=== PATIENT | female | born 1995 | race African-American/Black ===

== ENCOUNTER 2017-03-06 15:33 | Observation (INO) | payer OTHER ==
[~2017-03-06] VITALS: Ht 165.1 cm; Wt 54.4 kg
[2017-03-06] MEDS ORDERED: IV NORMAL SALINE 1000ML BAG 1,000 ML IV SCH (16:12)
--- NOTE | 2017-03-06 16:13 | PHYS DOC ---
Past Medical History Past Medical History: Asthma, Other Additional Past Medical Histor: graves disease Past Surgical History: Other Additional Past Surgical Histo: ectopic preg, Alcohol Use: None Drug Use: None Adult General Chief Complaint Chief Complaint: ABDOMINAL PAIN HPI HPI Patient is a 21 year old -[place] female who presents with with multiple complains. She states that 2 days ago she started having body aches with pain, abdominal pain, she vomits anytime she drinks water and she will episode of nonbloody stools this morning. She states she has a history of Graves ' disease but does not take her medicine because it makes her feel bad. She states he has medicines at home but doesn't want to take him. She states 3 years ago she had an ectopic otherwise is not complaining of any vaginal bleeding or discharge. She does have a cough that she's had for the last several days. She states her abdominal pains been there for 2 days and it' s constant nothing makes it better or worse. Review of Systems Review of Systems Constitutional: Denies fever or chills [] Eyes: Denies change in visual acuity, redness, or eye pain [] HENT: Denies nasal congestion or sore throat [] Respiratory: Denies cough or shortness of breath [] Cardiovascular: No additional information not addressed in HPI [] GI: Denies abdominal pain, nausea, vomiting, bloody stools or diarrhea [] : Denies dysuria or hematuria [] Musculoskeletal: Denies back pain or joint pain [] Integument: Denies rash or skin lesions [] Neurologic: Denies headache, focal weakness or sensory changes [] Endocrine: Denies polyuria or polydipsia [] Current Medications Current Medications Current Medications Medications (Trade) Dose Ordered Sig/Kiko Start Time Stop Time Status Last Admin Dose Admin Fentanyl Citrate (Fentanyl 2ml Vial) 25 mcg PRN Q15MIN PRN 03/06/17 16:45 03/06/17 18:01 DC 03/06/17 17:36 25 MCG Info (Do NOT chart on this entry -- for MONITORING) 1 each PRN DAILY PRN 03/06/17 17:00 03/08/17 16:59 Ondansetron HCl (Zofran) 4 mg 1X ONCE 03/06/17 16:15 03/06/17 16:16 DC 03/06/17 16:29 4 MG Sodium Chloride 1,000 ml @ 1,000 mls/hr Q1H 03/06/17 16:12 03/06/17 17:11 DC 03/06/17 16:28 1,000 MLS/HR Allergies Allergies Allergies Coded Allergies Type Severity Reaction Last Updated Verified morphine Allergy Severe "makes me go crazy" 03/06/17 Yes Physical Exam Physical Exam Constitutional: Well developed, well nourished, no acute distress, non-toxic appearance. [] HENT: Normocephalic, atraumatic, bilateral external ears normal, oropharynx moist, no oral exudates, nose normal. [] Eyes: PERRLA, EOMI, conjunctiva normal, no discharge. [] Neck: Normal range of motion, no tenderness, supple, no stridor. [] Cardiovascular:Heart rate regular rhythm, no murmur [] Lungs & Thorax: Bilateral breath sounds clear to auscultation [] Abdomen: Bowel sounds hypoactive soft, mild tenderness to palpation diffusely, no rebound or guarding, no masses, no pulsatile masses. [] Skin: Warm, dry, no erythema, no rash. [] Back: No tenderness, no CVA tenderness. [] Extremities: No tenderness, no cyanosis, no clubbing, ROM intact, no edema. [] Neurologic: Alert and oriented X 3, normal motor function, normal sensory function, no focal deficits noted. [] Psychologic: Affect normal, judgement normal, mood normal. [] Current Patient Data Vital Signs Vital Signs Date Time Temp Pulse Resp B/P (MAP) Pulse Ox O2 Delivery O2 Flow Rate FiO2 03/06/17 16:56 102 24 129/63 (85) 100 Room Air 03/06/17 15:52 98.5 98.5 Lab Values Laboratory Tests Test 03/06/17 16:00 White Blood Count 4.1 x10^3/uL (4.0-11.0) Red Blood Count 5.77 x10^6/uL (3.50-5.40) H Hemoglobin 14.3 g/dL (12.0-15.5) Hematocrit 44.0 % (36.0-47.0) Mean Corpuscular Volume 76 fL (79-100) L Mean Corpuscular Hemoglobin 25 pg (25-35) Mean Corpuscular Hemoglobin Concent 32 g/dL (31-37) Red Cell Distribution Width 13.7 % (11.5-14.5) Platelet Count 209 x10^3/uL (140-400) Neutrophils (%) (Auto) 57 % (31-73) Lymphocytes (%) (Auto) 24 % (24-48) Monocytes (%) (Auto) 19 % (0-9) H Eosinophils (%) (Auto) 0 % (0-3) Basophils (%) (Auto) 0 % (0-3) Neutrophils # (Auto) 2.3 x10^3uL (1.8-7.7) Lymphocytes # (Auto) 1.0 x10^3/uL (1.0-4.8) Monocytes # (Auto) 0.8 x10^3/uL (0.0-1.1) Eosinophils # (Auto) 0.0 x10^3/uL (0.0-0.7) Basophils # (Auto) 0.0 x10^3/uL (0.0-0.2) Segmented Neutrophils % 45 % (35-66) Band Neutrophils % 12 % (0-9) H Lymphocytes % 24 % (24-48) Monocytes % 19 % (0-10) H Platelet Estimate Adequate (ADEQUATE) Prothrombin Time 14.7 SEC (11.7-14.0) H Prothrombin Time INR 1.2 (0.8-1.1) H Urine Collection Type Unknown Urine Color Essence Urine Clarity Clear Urine pH 6.0 Urine Specific [place] >=1.030 Urine Protein 100 mg/dL (NEG-TRACE) Urine Glucose (UA) Negative mg/dL (NEG) Urine Ketones (Stick) Trace mg/dL (NEG) Urine Blood Trace (NEG) Urine Nitrite Negative (NEG) Urine Bilirubin Small (NEG) Urine Urobilinogen Dipstick 1.0 mg/dL (0.2 mg/dL) Urine Leukocyte Esterase Trace (NEG) Urine RBC 6-10 /HPF (0-2) Urine WBC 5-10 /HPF (0-4) Urine Squamous Epithelial Cells Mod /LPF Urine Bacteria 0 /HPF (0-FEW) Urine Mucus Marked /LPF Sodium Level 138 mmol/L (136-145) Potassium Level 2.8 mmol/L (3.5-5.1) *L Chloride Level 98 mmol/L (98-107) Carbon Dioxide Level 27 mmol/L (21-32) Anion Gap 13 (6-14) Blood Urea Nitrogen 10 mg/dL (7-20) Creatinine 0.7 mg/dL (0.6-1.0) Estimated GFR (Cockcroft-Gault) 129.1 Glucose Level 113 mg/dL (70-99) H Calcium Level 9.9 mg/dL (8.5-10.1) Magnesium Level 2.0 mg/dL (1.8-2.4) Total Bilirubin 0.7 mg/dL (0.2-1.0) Direct Bilirubin 0.1 mg/dL (0.0-0.2) Aspartate Amino Transferase (AST) 25 U/L (15-37) Alanine Aminotransferase (ALT) 22 U/L (14-59) Alkaline Phosphatase 90 U/L (46-116) Creatine Kinase 41 U/L (26-192) Creatine Kinase MB (Mass) < 0.5 ng/mL (0.0-3.6) Creatine Kinase MB Relative Index 1.2 % (0-4) Troponin I Quantitative < 0.017 ng/mL (0.000-0.055) [id number]-Krv-[id number]-Type Natriuretic Peptide 21 pg/mL (0-124) Total Protein 9.4 g/dL (6.4-8.2) H Albumin 4.4 g/dL (3.4-5.0) Lipase 81 U/L (73-393) Thyroid Stimulating Hormone (TSH) < 0.007 uIU/mL (0.358-3.74) L Urine Opiates Screen Neg (NEG) Urine Methadone Screen Neg (NEG) Urine Barbiturates Neg (NEG) Urine Phencyclidine Screen Neg (NEG) Urine Amphetamine/Methamphetamine Neg (NEG) Urine Benzodiazepines Screen Neg (NEG) Urine Cocaine Screen Neg (NEG) Urine Cannabinoids Screen Pos (NEG) Urine Ethyl Alcohol Neg (NEG) Laboratory Tests 03/06/17 16:00 Laboratory Tests 03/06/17 16:00 EKG EKG EKG shows sinus tachycardia with a rate of 109 bpm, no ST elevations appreciated , mild depressions in 1 and aVL, no T-wave inversions appreciated, left axis deviation noted, incomplete right bundle branch morphology noted, QTC 392 ms, as interpreted by me. Radiology/Procedures Radiology/Procedures [] Impressions: Abdominal pain Chest pain Hyperthyroidism Noncompliance Course & Med Decision Making Course & Med Decision Making Pertinent Labs and Imaging studies reviewed. (See chart for details) Potassium is 2.8. I have ordered [address] abdomen and pelvis is pending at this time. She's being admitted to Dr. Weber. He did speak with Dr. Allen regarding her noncompliance and her severely depressed TSH and he is going to see the patient and determine if she needs beta blockers or other intervention. I've informed him that his CT scans are still pending at this time. Patient's in stable condition be admitted to the floor. Interim orders have been written. Dragon Disclaimer Dragon Disclaimer This electronic medical record was generated, in whole or in part, using a voice recognition dictation system. Departure Departure Impression: Primary Impression: Abdominal pain Additional Impression: Graves disease Disposition: ADMITTED INPATIENT Admitting Physician: Dulce Allen Condition: STABLE Problem Qualifiers Primary Impression: Abdominal pain Abdominal location: generalized Qualified Codes: R10.84 - Generalized abdominal pain JACK PEREZ MD Mar 06, 2017 16:13
[2017-03-06] MEDS ORDERED: ONDANSETRON PF 4 MG/2 ML VIAL. IV ONE (16:15)
[2017-03-06 16:23] LABS: BILIRUBIN,URINE SMALL (NEG); GLUCOSE,URINE NEGATIVE (NEG); NITRITE,URINE NEGATIVE (NEG); PROTEIN,URINE 100 mg/dL (NEG-TRACE)
[2017-03-06 16:24] LABS: BASO % 0 % (0-3); EOS % 0 % (0-3); HEMOGLOBIN 14.3 g/dL (12.0-15.5); LYMPH % 24 % (24-48); MEAN CORPUSCULAR HEMOGLOBIN 25 pg (25-35); MEAN CORPUSCULAR HGB CONC 32 g/dL (31-37); MEAN CORPUSCULAR VOLUME 76 fL (79-100); MONO % 19 % (0-9); NEUT % 57 % (31-73); PLATELET COUNT 209 x10^3/uL (140-400); RED BLOOD COUNT 5.77 x10^6/uL (3.50-5.40); RED CELL DISTRIBUTION WIDTH 13.7 % (11.5-14.5); WHITE BLOOD COUNT 4.1 x10^3/uL (4.0-11.0)
[2017-03-06 16:28] LABS: BARBITURATES NEG (NEG); BENZODIAZEPINES NEG (NEG); CANNABINOIDS POS (NEG); COCAINE NEG (NEG); METHADONE NEG (NEG); OPIATES NEG (NEG); PHENCYCLIDINE NEG (NEG)
[2017-03-06 16:33] LABS: INR 1.2 (0.8-1.1); PROTHROMBIN TIME PATIENT 14.7 SEC (11.7-14.0)
[2017-03-06] MEDS: fentaNYL PF VIAL 100 MCG/2 ML VIAL IV PRN ×4 (16:46→23:24)
[2017-03-06 16:52] LABS: ALBUMIN 4.4 g/dL (3.4-5.0); CALCIUM 9.9 mg/dL (8.5-10.1); CREATININE 0.7 mg/dL (0.6-1.0); DIRECT BILIRUBIN 0.1 mg/dL (0.0-0.2); GFR 129.1; TOTAL BILIRUBIN 0.7 mg/dL (0.2-1.0); TOTAL PROTEIN 9.4 g/dL (6.4-8.2)
[2017-03-06 16:58] LABS: BACTERIA,URINE 0 /HPF (0-FEW); SQUAMOUS EPITHELIAL CELL,UR MOD /LPF
[2017-03-06 16:59] LABS: CREATINE KINASE 41 U/L (26-192)
[2017-03-06] MEDS ORDERED: CONTRAST GIVEN MC PRN (17:00)
[2017-03-06 17:02] LABS: POTASSIUM 2.8 mmol/L (3.5-5.1)
[2017-03-06 17:04] LABS: CKMB MASS < 0.5 ng/mL (0.0-3.6)
[2017-03-06] MEDS ORDERED: IOHEXOL 240 MG/ML 50ML VIAL. PO ONE (17:15)
[2017-03-06] MEDS ORDERED: IOHEXOL 300 MG/ML 75 ML VIAL IV ONE (17:15)
[2017-03-06 17:30] LABS: PLT ESTIMATE ADEQUATE (ADEQUATE)
[2017-03-06] MEDS ORDERED: ONDANSETRON PF 4 MG/2 ML VIAL. IV PRN (18:00)
[2017-03-06] MEDS ORDERED: PROMETHAZINE 25 MG in IV NORMAL SALINE 50ML 50 ML IV ONE (18:00)
[2017-03-06 18:50] VITALS: BP 145/72
[2017-03-06] MEDS: POTASSIUM CHLORIDE 10MEQ 100 ML IV SCH ×4 (19:06→23:23)
--- NOTE | 2017-03-06 19:29 | RAD ---
Examination: CT angiography chest and CT abdomen and pelvis with IV contrast HISTORY: History of abdominal pain, chest pain COMPARISON: None available TECHNIQUE: Axial CT angiography images were performed with IV contrast. Coronal and sagittal 3-D MIP reformats were performed. Axial CT images of the abdomen performed with IV contrast. Coronal and sagittal reformats are performed. Exposure: One or more of the following individualized dose reduction techniques were utilized for this examination: 1. Automated exposure control 2. Adjustment of the mA and/or kV according to patient size 3. Use of iterative reconstruction technique FINDINGS: The caliber of the aorta grossly appears unremarkable. The dilation the ascending aorta is limited due to significant motion artifact No evidence of filling defect identified in the main pulmonary arterial trunk and right and left main pulmonary arteries and visualized liver, segment appearance of the pulmonary arteries No evidence of pericardial effusion. The esophagus appears somewhat patulous with the small amount of fluid within the esophagus. Multiple groundglass patchy airspace opacities identified in the right middle lobe, bibasilar lungs. The visualized liver demonstrates a tiny 2 mm hypodensity in the right lobe of the liver could be a cyst or hemangioma. The visualized spleen, adrenals grossly appears unremarkable The stomach is mildly distended The visualized pancreas grossly appears unremarkable Small bowel is nondilated The visualized appendix grossly appears unremarkable. Feces and gas noted in the colon Urinary bladder is mildly distended. The bilateral kidneys enhance symmetrically. The caliber of the aorta grossly appears unremarkable. No evidence of lytic bony destructive lesion. IMPRESSION: 1. No evidence of pulmonary embolism. 2. The esophagus is mildly patulous with fluid distention of the esophagus. Nonspecific, Scleroderma not completely excluded. 3. Multiple groundglass patchy airspace opacities identified in the right middle lobe and bibasilar lungs likely pneumonia or mucous plugging or aspiration. 4. No acute intra-abdominal findings. Electronically signed by: Jc Majano MD (03/06/2017 7:25 PM) [facility]
--- NOTE | 2017-03-06 19:58 | PDOC1 ---
History and Physical Date of Admission Date of Admission DATE: 03/06/17 TIME: 19:55 Identification/Chief Complaint Chief Complaint CP, Abd beulah, Tachy, NONCOMPLIANCE with meds and need for thyroid surgery Problems: History of Present Illness History of Present Illness HPI Patient is a 21 year old -[place] female who presents with with multiple complains. She states that 2 days ago she started having body aches with pain, abdominal pain, she vomits anytime she drinks water and she will episode of nonbloody stools this morning. She states she has a history of Graves ' disease but does not take her medicine because it makes her feel bad. She states he has medicines at home but doesn't want to take him. She states 3 years ago she had an ectopic otherwise is not complaining of any vaginal bleeding or discharge. She does have a cough that she's had for the last several days. She states her abdominal pains been there for 2 days and it' s constant nothing makes it better or worse. Past Medical History: Asthma, Other Additional Past Medical Histor: graves disease Past Surgical History: Other Additional Past Surgical Histo: ectopic preg, Alcohol Use: None Pt seen and examined [facility] ER doc and RNs Plan is add Propranalol and Iv fluids Gave her an appointment slip at to see Endocrinology. Dictation system broken Total time 32 minutes Current Problem List Problem List Problems Medical Problems: (1) Abdominal pain Status: Acute (2) Graves disease Status: Acute Problems: Current Medications Current Medications Current Medications Sodium Chloride 1,000 ml @ 1,000 mls/hr Q1H IV Last administered on 03/06/17 16:28; Start 03/06/17 at 16:12; Stop 03/06/17 at 17:11; Status DC Ondansetron HCl (Zofran) 4 mg 1X ONCE IV Last administered on 03/06/17 16:29; Start 03/06/17 at 16:15; Stop 03/06/17 at 16:16; Status DC Fentanyl Citrate (Fentanyl 2ml Vial) 25 mcg PRN Q15MIN PRN IV PAIN GREATER THAN 3/10 Last administered on 03/06/17 17:36; Start 03/06/17 at 16:45; Stop 03/06 at 18:01; Status DC Iohexol (Omnipaque 300 Mg/ml) 75 ml 1X ONCE IV Last administered on 03/06/17 17:15; Start 03/06/17 at 17:15; Stop 03/06/17 at 17:16; Status DC Iohexol (Omnipaque 240 Mg/ml) 50 ml 1X ONCE PO Last administered on 03/06/17 17:15; Start 03/06/17 at 17:15; Stop 03/06/17 at 17:16; Status DC Info (Do NOT chart on this entry -- for MONITORING) 1 each PRN DAILY PRN MC SEE COMMENTS; Start 03/06/17 at 17:00; Stop 03/08/17 at 16:59 Promethazine HCl 25 mg/Sodium Chloride 51 ml @ 101 mls/hr 1X ONCE IV Last administered on 03/06/17 18:14; Start 03/06/17 at 18:00; Stop 03/06/17 at 18:30; Status DC Ondansetron HCl (Zofran) 4 mg PRN Q8HRS PRN IV NAUSEA/VOMITING; Start 03/06/17 at 18:00; Stop 03/07/17 at 17:59 Fentanyl Citrate (Fentanyl 2ml Vial) 50 mcg PRN Q2HR PRN IV PAIN; Start at 18:00; Stop 03/07/17 at 17:59 Potassium Chloride 100 ml @ 100 mls/hr Q1H IV Last administered on 03/06/17 19 :06; Start 03/06/17 at 19:00; Stop 03/06/17 at 22:59 Sodium Chloride 1,000 ml @ 75 mls/hr [id number] IV ; Start 03/06/17 at 20:00 Allergies Allergies: Coded Allergies: morphine (Verified Allergy, Severe, "makes me go crazy", 03/06/17) Vitals Vitals Vital Signs Date Time Temp Pulse Resp B/P (MAP) Pulse Ox O2 Delivery O2 Flow Rate FiO2 03/06/17 18:50 99.9 72 20 145/72 (96) 98 Room Air 99.9 Labs Labs Laboratory Tests Test 03/06/17 16:00 White Blood Count 4.1 x10^3/uL (4.0-11.0) Red Blood Count 5.77 x10^6/uL (3.50-5.40) Hemoglobin 14.3 g/dL (12.0-15.5) Hematocrit 44.0 % (36.0-47.0) Mean Corpuscular Volume 76 fL (79-100) Mean Corpuscular Hemoglobin 25 pg (25-35) Mean Corpuscular Hemoglobin Concent 32 g/dL (31-37) Red Cell Distribution Width 13.7 % (11.5-14.5) Platelet Count 209 x10^3/uL (140-400) Neutrophils (%) (Auto) 57 % (31-73) Lymphocytes (%) (Auto) 24 % (24-48) Monocytes (%) (Auto) 19 % (0-9) Eosinophils (%) (Auto) 0 % (0-3) Basophils (%) (Auto) 0 % (0-3) Neutrophils # (Auto) 2.3 x10^3uL (1.8-7.7) Lymphocytes # (Auto) 1.0 x10^3/uL (1.0-4.8) Monocytes # (Auto) 0.8 x10^3/uL (0.0-1.1) Eosinophils # (Auto) 0.0 x10^3/uL (0.0-0.7) Basophils # (Auto) 0.0 x10^3/uL (0.0-0.2) Segmented Neutrophils % 45 % (35-66) Band Neutrophils % 12 % (0-9) Lymphocytes % 24 % (24-48) Monocytes % 19 % (0-10) Platelet Estimate Adequate (ADEQUATE) Prothrombin Time 14.7 SEC (11.7-14.0) Prothromb Time International Ratio 1.2 (0.8-1.1) Urine Collection Type Unknown Urine Color Essence Urine Clarity Clear Urine pH 6.0 Urine Specific [place] >=1.030 Urine Protein 100 mg/dL (NEG-TRACE) Urine Glucose (UA) Negative mg/dL (NEG) Urine Ketones (Stick) Trace mg/dL (NEG) Urine Blood Trace (NEG) Urine Nitrite Negative (NEG) Urine Bilirubin Small (NEG) Urine Urobilinogen Dipstick 1.0 mg/dL (0.2 mg/dL) Urine Leukocyte Esterase Trace (NEG) Urine RBC 6-10 /HPF (0-2) Urine WBC 5-10 /HPF (0-4) Urine Squamous Epithelial Cells Mod /LPF Urine Bacteria 0 /HPF (0-FEW) Urine Mucus Marked /LPF Sodium Level 138 mmol/L (136-145) Potassium Level 2.8 mmol/L (3.5-5.1) Chloride Level 98 mmol/L (98-107) Carbon Dioxide Level 27 mmol/L (21-32) Anion Gap 13 (6-14) Blood Urea Nitrogen 10 mg/dL (7-20) Creatinine 0.7 mg/dL (0.6-1.0) Estimated GFR (Cockcroft-Gault) 129.1 Glucose Level 113 mg/dL (70-99) Calcium Level 9.9 mg/dL (8.5-10.1) Magnesium Level 2.0 mg/dL (1.8-2.4) Total Bilirubin 0.7 mg/dL (0.2-1.0) Direct Bilirubin 0.1 mg/dL (0.0-0.2) Aspartate Amino Transf (AST/SGOT) 25 U/L (15-37) Alanine Aminotransferase (ALT/SGPT) 22 U/L (14-59) Alkaline Phosphatase 90 U/L (46-116) Creatine Kinase 41 U/L (26-192) Creatine Kinase MB (Mass) < 0.5 ng/mL (0.0-3.6) Creatine Kinase MB Relative Index 1.2 % (0-4) Troponin I Quantitative < 0.017 ng/mL (0.000-0.055) DK-Mma-[id number]-Type Natriuretic Peptide 21 pg/mL (0-124) Total Protein 9.4 g/dL (6.4-8.2) Albumin 4.4 g/dL (3.4-5.0) Lipase 81 U/L (73-393) Thyroid Stimulating Hormone (TSH) < 0.007 uIU/mL (0.358-3.74) Free Thyroxine 1.88 ng/dL (0.76-1.46) Urine Opiates Screen Neg (NEG) Urine Methadone Screen Neg (NEG) Urine Barbiturates Neg (NEG) Urine Phencyclidine Screen Neg (NEG) Urine Amphetamine/Methamphetamine Neg (NEG) Urine Benzodiazepines Screen Neg (NEG) Urine Cocaine Screen Neg (NEG) Urine Cannabinoids Screen Pos (NEG) Urine Ethyl Alcohol Neg (NEG) Laboratory Tests Test 03/06/17 16:00 White Blood Count 4.1 x10^3/uL (4.0-11.0) Red Blood Count 5.77 x10^6/uL (3.50-5.40) Hemoglobin 14.3 g/dL (12.0-15.5) Hematocrit 44.0 % (36.0-47.0) Mean Corpuscular Volume 76 fL (79-100) Mean Corpuscular Hemoglobin 25 pg (25-35) Mean Corpuscular Hemoglobin Concent 32 g/dL (31-37) Red Cell Distribution Width 13.7 % (11.5-14.5) Platelet Count 209 x10^3/uL (140-400) Neutrophils (%) (Auto) 57 % (31-73) Lymphocytes (%) (Auto) 24 % (24-48) Monocytes (%) (Auto) 19 % (0-9) Eosinophils (%) (Auto) 0 % (0-3) Basophils (%) (Auto) 0 % (0-3) Neutrophils # (Auto) 2.3 x10^3uL (1.8-7.7) Lymphocytes # (Auto) 1.0 x10^3/uL (1.0-4.8) Monocytes # (Auto) 0.8 x10^3/uL (0.0-1.1) Eosinophils # (Auto) 0.0 x10^3/uL (0.0-0.7) Basophils # (Auto) 0.0 x10^3/uL (0.0-0.2) Segmented Neutrophils % 45 % (35-66) Band Neutrophils % 12 % (0-9) Lymphocytes % 24 % (24-48) Monocytes % 19 % (0-10) Platelet Estimate Adequate (ADEQUATE) Prothrombin Time 14.7 SEC (11.7-14.0) Prothromb Time International Ratio 1.2 (0.8-1.1) Urine Collection Type Unknown Urine Color Essence Urine Clarity Clear Urine pH 6.0 Urine Specific [place] >=1.030 Urine Protein 100 mg/dL (NEG-TRACE) Urine Glucose (UA) Negative mg/dL (NEG) Urine Ketones (Stick) Trace mg/dL (NEG) Urine Blood Trace (NEG) Urine Nitrite Negative (NEG) Urine Bilirubin Small (NEG) Urine Urobilinogen Dipstick 1.0 mg/dL (0.2 mg/dL) Urine Leukocyte Esterase Trace (NEG) Urine RBC 6-10 /HPF (0-2) Urine WBC 5-10 /HPF (0-4) Urine Squamous Epithelial Cells Mod /LPF Urine Bacteria 0 /HPF (0-FEW) Urine Mucus Marked /LPF Sodium Level 138 mmol/L (136-145) Potassium Level 2.8 mmol/L (3.5-5.1) Chloride Level 98 mmol/L (98-107) Carbon Dioxide Level 27 mmol/L (21-32) Anion Gap 13 (6-14) Blood Urea Nitrogen 10 mg/dL (7-20) Creatinine 0.7 mg/dL (0.6-1.0) Estimated GFR (Cockcroft-Gault) 129.1 Glucose Level 113 mg/dL (70-99) Calcium Level 9.9 mg/dL (8.5-10.1) Magnesium Level 2.0 mg/dL (1.8-2.4) Total Bilirubin 0.7 mg/dL (0.2-1.0) Direct Bilirubin 0.1 mg/dL (0.0-0.2) Aspartate Amino Transf (AST/SGOT) 25 U/L (15-37) Alanine Aminotransferase (ALT/SGPT) 22 U/L (14-59) Alkaline Phosphatase 90 U/L (46-116) Creatine Kinase 41 U/L (26-192) Creatine Kinase MB (Mass) < 0.5 ng/mL (0.0-3.6) Creatine Kinase MB Relative Index 1.2 % (0-4) Troponin I Quantitative < 0.017 ng/mL (0.000-0.055) PG-Kmo-O-Type Natriuretic Peptide 21 pg/mL (0-124) Total Protein 9.4 g/dL (6.4-8.2) Albumin 4.4 g/dL (3.4-5.0) Lipase 81 U/L (73-393) Thyroid Stimulating Hormone (TSH) < 0.007 uIU/mL (0.358-3.74) Free Thyroxine 1.88 ng/dL (0.76-1.46) Urine Opiates Screen Neg (NEG) Urine Methadone Screen Neg (NEG) Urine Barbiturates Neg (NEG) Urine Phencyclidine Screen Neg (NEG) Urine Amphetamine/Methamphetamine Neg (NEG) Urine Benzodiazepines Screen Neg (NEG) Urine Cocaine Screen Neg (NEG) Urine Cannabinoids Screen Pos (NEG) Urine Ethyl Alcohol Neg (NEG) VTE Prophylaxis Ordered VTE Prophylaxis Devices: Yes VTE Pharmacological Prophylaxi: Yes MATIAS MCARTHUR III DO Mar 06, 2017 19:57
[2017-03-06] MEDS: IV NORMAL SALINE 1000ML BAG 1,000 ML IV SCH (20:00)
[2017-03-06] MEDS: PROPRANOLOL 10 MG TABLET. PO SCH (21:04)
[2017-03-06 23:00] VITALS: BP 106/62
[2017-03-07 03:00] VITALS: BP 106/55
[2017-03-07] MEDS: PROMETH/CODEINE 6.25/10MG 5 ML SYRUP. PO PRN ×3 (03:03→21:15)
[2017-03-07 04:04] LABS: BASO % 0 % (0-3); EOS % 0 % (0-3); HEMATOCRIT 34.6 % (36.0-47.0); HEMOGLOBIN 11.2 g/dL (12.0-15.5); LYMPH # 1.2 x10^3/uL (1.0-4.8); LYMPH % 36 % (24-48); MEAN CORPUSCULAR HEMOGLOBIN 25 pg (25-35); MEAN CORPUSCULAR HGB CONC 32 g/dL (31-37); MEAN CORPUSCULAR VOLUME 76 fL (79-100); MONO % 17 % (0-9); NEUT % 47 % (31-73); PLATELET COUNT 158 x10^3/uL (140-400); RED BLOOD COUNT 4.53 x10^6/uL (3.50-5.40); RED CELL DISTRIBUTION WIDTH 13.6 % (11.5-14.5); WHITE BLOOD COUNT 3.4 x10^3/uL (4.0-11.0)
[2017-03-07 05:51] LABS: CALCIUM 8.3 mg/dL (8.5-10.1); CREATININE 0.6 mg/dL (0.6-1.0); GFR 154.2
[2017-03-07 07:00] VITALS: BP 109/76
[2017-03-07] MEDS: PROPRANOLOL 10 MG TABLET. PO SCH ×2 (08:58→21:17)
[2017-03-07] MEDS: fentaNYL PF VIAL 100 MCG/2 ML VIAL IV PRN ×2 (09:12→15:49)
[2017-03-07] MEDS: IV NORMAL SALINE 1000ML BAG 1,000 ML IV SCH ×2 (09:13→11:00)
[2017-03-07] MEDS ORDERED: POTASSIUM CHLORIDE 20 MEQ TABLET.ER. PO ONE (11:00)
--- NOTE | 2017-03-07 11:08 | PDOC ---
PROGRESS NOTES Chief Complaint Chief Complaint Chief complaint nausea vomiting diarrhea, and cough Assessment and plan: #1 possible pneumonia Vs Asthma, #2 hypokalemia #3 elevated T4 questionably Graves' disease, #4 nausea vomiting and diarrhea and dehydration 5, Fevers, Plan #1placed on IV Rocephin and Zithromax, #2 started on IV hydration with normal saline, #3 consult pulmonology / infectious disease for further recommendations, patient needs outpatient follow-up with endocrinology at [facility], information provided #4 patient has elevation of temperature spikes I will order blood cultures, labs reviewed, #5 CBC BMP ordered for tomorrow, as needed Tylenol for fever, prognosis guarded, 6, PRN nebulizations. History of Present Illness History of Present Illness vomiting this am fevers no chest pain not feeling well. Vitals Vitals Vital Signs Date Time Temp Pulse Resp B/P (MAP) Pulse Ox O2 Delivery O2 Flow Rate FiO2 03/07/17 09:12 20 100 Room Air 03/07/17 08:58 90 109/76 03/07/17 07:00 99.5 99.5 Physical Exam General: Alert, Oriented X3 Heart: Regular rate, Normal S1, Normal S2 Lungs: Clear, Other (rales) Abdomen: Normal bowel sounds, Soft Extremities: No clubbing Skin: No rashes, No breakdown Labs LABS Laboratory Tests Test 03/06/17 16:00 03/07/17 03:00 03/07/17 03:30 White Blood Count 4.1 x10^3/uL (4.0-11.0) 3.4 x10^3/uL (4.0-11.0) Red Blood Count 5.77 x10^6/uL (3.50-5.40) 4.53 x10^6/uL (3.50-5.40) Hemoglobin 14.3 g/dL (12.0-15.5) 11.2 g/dL (12.0-15.5) Hematocrit 44.0 % (36.0-47.0) 34.6 % (36.0-47.0) Mean Corpuscular Volume 76 fL (79-100) 76 fL (79-100) Mean Corpuscular Hemoglobin 25 pg (25-35) 25 pg (25-35) Mean Corpuscular Hemoglobin Concent 32 g/dL (31-37) 32 g/dL (31-37) Red Cell Distribution Width 13.7 % (11.5-14.5) 13.6 % (11.5-14.5) Platelet Count 209 x10^3/uL (140-400) 158 x10^3/uL (140-400) Neutrophils (%) (Auto) 57 % (31-73) 47 % (31-73) Lymphocytes (%) (Auto) 24 % (24-48) 36 % (24-48) Monocytes (%) (Auto) 19 % (0-9) 17 % (0-9) Eosinophils (%) (Auto) 0 % (0-3) 0 % (0-3) Basophils (%) (Auto) 0 % (0-3) 0 % (0-3) Neutrophils # (Auto) 2.3 x10^3uL (1.8-7.7) 1.6 x10^3uL (1.8-7.7) Lymphocytes # (Auto) 1.0 x10^3/uL (1.0-4.8) 1.2 x10^3/uL (1.0-4.8) Monocytes # (Auto) 0.8 x10^3/uL (0.0-1.1) 0.6 x10^3/uL (0.0-1.1) Eosinophils # (Auto) 0.0 x10^3/uL (0.0-0.7) 0.0 x10^3/uL (0.0-0.7) Basophils # (Auto) 0.0 x10^3/uL (0.0-0.2) 0.0 x10^3/uL (0.0-0.2) Segmented Neutrophils % 45 % (35-66) Band Neutrophils % 12 % (0-9) Lymphocytes % 24 % (24-48) Monocytes % 19 % (0-10) Platelet Estimate Adequate (ADEQUATE) Prothrombin Time 14.7 SEC (11.7-14.0) Prothromb Time International Ratio 1.2 (0.8-1.1) Urine Collection Type Unknown Urine Color Essence Urine Clarity Clear Urine pH 6.0 Urine Specific Garnavillo >=1.030 Urine Protein 100 mg/dL (NEG-TRACE) Urine Glucose (UA) Negative mg/dL (NEG) Urine Ketones (Stick) Trace mg/dL (NEG) Urine Blood Trace (NEG) Urine Nitrite Negative (NEG) Urine Bilirubin Small (NEG) Urine Urobilinogen Dipstick 1.0 mg/dL (0.2 mg/dL) Urine Leukocyte Esterase Trace (NEG) Urine RBC 6-10 /HPF (0-2) Urine WBC 5-10 /HPF (0-4) Urine Squamous Epithelial Cells Mod /LPF Urine Bacteria 0 /HPF (0-FEW) Urine Mucus Marked /LPF Sodium Level 138 mmol/L (136-145) 139 mmol/L (136-145) Potassium Level 2.8 mmol/L (3.5-5.1) 3.0 mmol/L (3.5-5.1) Chloride Level 98 mmol/L (98-107) 104 mmol/L (98-107) Carbon Dioxide Level 27 mmol/L (21-32) 27 mmol/L (21-32) Anion Gap 13 (6-14) 8 (6-14) Blood Urea Nitrogen 10 mg/dL (7-20) 7 mg/dL (7-20) Creatinine 0.7 mg/dL (0.6-1.0) 0.6 mg/dL (0.6-1.0) Estimated GFR (Cockcroft-Gault) 129.1 154.2 Glucose Level 113 mg/dL (70-99) 108 mg/dL (70-99) Calcium Level 9.9 mg/dL (8.5-10.1) 8.3 mg/dL (8.5-10.1) Magnesium Level 2.0 mg/dL (1.8-2.4) Total Bilirubin 0.7 mg/dL (0.2-1.0) Direct Bilirubin 0.1 mg/dL (0.0-0.2) Aspartate Amino Transf (AST/SGOT) 25 U/L (15-37) Alanine Aminotransferase (ALT/SGPT) 22 U/L (14-59) Alkaline Phosphatase 90 U/L (46-116) Creatine Kinase 41 U/L (26-192) Creatine Kinase MB (Mass) < 0.5 ng/mL (0.0-3.6) Creatine Kinase MB Relative Index 1.2 % (0-4) Troponin I Quantitative < 0.017 ng/mL (0.000-0.055) WH-Hpe-T-Type Natriuretic Peptide 21 pg/mL (0-124) Total Protein 9.4 g/dL (6.4-8.2) Albumin 4.4 g/dL (3.4-5.0) Lipase 81 U/L (73-393) Thyroid Stimulating Hormone (TSH) < 0.007 uIU/mL (0.358-3.74) Free Thyroxine 1.88 ng/dL (0.76-1.46) Urine Opiates Screen Neg (NEG) Urine Methadone Screen Neg (NEG) Urine Barbiturates Neg (NEG) Urine Phencyclidine Screen Neg (NEG) Urine Amphetamine/Methamphetamine Neg (NEG) Urine Benzodiazepines Screen Neg (NEG) Urine Cocaine Screen Neg (NEG) Urine Cannabinoids Screen Pos (NEG) Urine Ethyl Alcohol Neg (NEG) Assessment and Plan Assessmemt and Plan Problems Medical Problems: (1) Abdominal pain Status: Acute (2) Graves disease Status: Acute Problems: Comment Review of Relevant I have reviewed the following items jeramie (where applicable) has been applied. Labs Laboratory Tests Test 03/06/17 16:00 03/07/17 03:00 03/07/17 03:30 White Blood Count 4.1 x10^3/uL (4.0-11.0) 3.4 x10^3/uL (4.0-11.0) Red Blood Count 5.77 x10^6/uL (3.50-5.40) 4.53 x10^6/uL (3.50-5.40) Hemoglobin 14.3 g/dL (12.0-15.5) 11.2 g/dL (12.0-15.5) Hematocrit 44.0 % (36.0-47.0) 34.6 % (36.0-47.0) Mean Corpuscular Volume 76 fL (79-100) 76 fL (79-100) Mean Corpuscular Hemoglobin 25 pg (25-35) 25 pg (25-35) Mean Corpuscular Hemoglobin Concent 32 g/dL (31-37) 32 g/dL (31-37) Red Cell Distribution Width 13.7 % (11.5-14.5) 13.6 % (11.5-14.5) Platelet Count 209 x10^3/uL (140-400) 158 x10^3/uL (140-400) Neutrophils (%) (Auto) 57 % (31-73) 47 % (31-73) Lymphocytes (%) (Auto) 24 % (24-48) 36 % (24-48) Monocytes (%) (Auto) 19 % (0-9) 17 % (0-9) Eosinophils (%) (Auto) 0 % (0-3) 0 % (0-3) Basophils (%) (Auto) 0 % (0-3) 0 % (0-3) Neutrophils # (Auto) 2.3 x10^3uL (1.8-7.7) 1.6 x10^3uL (1.8-7.7) Lymphocytes # (Auto) 1.0 x10^3/uL (1.0-4.8) 1.2 x10^3/uL (1.0-4.8) Monocytes # (Auto) 0.8 x10^3/uL (0.0-1.1) 0.6 x10^3/uL (0.0-1.1) Eosinophils # (Auto) 0.0 x10^3/uL (0.0-0.7) 0.0 x10^3/uL (0.0-0.7) Basophils # (Auto) 0.0 x10^3/uL (0.0-0.2) 0.0 x10^3/uL (0.0-0.2) Segmented Neutrophils % 45 % (35-66) Band Neutrophils % 12 % (0-9) Lymphocytes % 24 % (24-48) Monocytes % 19 % (0-10) Platelet Estimate Adequate (ADEQUATE) Prothrombin Time 14.7 SEC (11.7-14.0) Prothromb Time International Ratio 1.2 (0.8-1.1) Urine Collection Type Unknown Urine Color Essence Urine Clarity Clear Urine pH 6.0 Urine Specific Garnavillo >=1.030 Urine Protein 100 mg/dL (NEG-TRACE) Urine Glucose (UA) Negative mg/dL (NEG) Urine Ketones (Stick) Trace mg/dL (NEG) Urine Blood Trace (NEG) Urine Nitrite Negative (NEG) Urine Bilirubin Small (NEG) Urine Urobilinogen Dipstick 1.0 mg/dL (0.2 mg/dL) Urine Leukocyte Esterase Trace (NEG) Urine RBC 6-10 /HPF (0-2) Urine WBC 5-10 /HPF (0-4) Urine Squamous Epithelial Cells Mod /LPF Urine Bacteria 0 /HPF (0-FEW) Urine Mucus Marked /LPF Sodium Level 138 mmol/L (136-145) 139 mmol/L (136-145) Potassium Level 2.8 mmol/L (3.5-5.1) 3.0 mmol/L (3.5-5.1) Chloride Level 98 mmol/L (98-107) 104 mmol/L (98-107) Carbon Dioxide Level 27 mmol/L (21-32) 27 mmol/L (21-32) Anion Gap 13 (6-14) 8 (6-14) Blood Urea Nitrogen 10 mg/dL (7-20) 7 mg/dL (7-20) Creatinine 0.7 mg/dL (0.6-1.0) 0.6 mg/dL (0.6-1.0) Estimated GFR (Cockcroft-Gault) 129.1 154.2 Glucose Level 113 mg/dL (70-99) 108 mg/dL (70-99) Calcium Level 9.9 mg/dL (8.5-10.1) 8.3 mg/dL (8.5-10.1) Magnesium Level 2.0 mg/dL (1.8-2.4) Total Bilirubin 0.7 mg/dL (0.2-1.0) Direct Bilirubin 0.1 mg/dL (0.0-0.2) Aspartate Amino Transf (AST/SGOT) 25 U/L (15-37) Alanine Aminotransferase (ALT/SGPT) 22 U/L (14-59) Alkaline Phosphatase 90 U/L (46-116) Creatine Kinase 41 U/L (26-192) Creatine Kinase MB (Mass) < 0.5 ng/mL (0.0-3.6) Creatine Kinase MB Relative Index 1.2 % (0-4) Troponin I Quantitative < 0.017 ng/mL (0.000-0.055) IM-Mbs-H-Type Natriuretic Peptide 21 pg/mL (0-124) Total Protein 9.4 g/dL (6.4-8.2) Albumin 4.4 g/dL (3.4-5.0) Lipase 81 U/L (73-393) Thyroid Stimulating Hormone (TSH) < 0.007 uIU/mL (0.358-3.74) Free Thyroxine 1.88 ng/dL (0.76-1.46) Urine Opiates Screen Neg (NEG) Urine Methadone Screen Neg (NEG) Urine Barbiturates Neg (NEG) Urine Phencyclidine Screen Neg (NEG) Urine Amphetamine/Methamphetamine Neg (NEG) Urine Benzodiazepines Screen Neg (NEG) Urine Cocaine Screen Neg (NEG) Urine Cannabinoids Screen Pos (NEG) Urine Ethyl Alcohol Neg (NEG) Laboratory Tests Test 03/06/17 16:00 03/07/17 03:00 03/07/17 03:30 White Blood Count 4.1 x10^3/uL (4.0-11.0) 3.4 x10^3/uL (4.0-11.0) Red Blood Count 5.77 x10^6/uL (3.50-5.40) 4.53 x10^6/uL (3.50-5.40) Hemoglobin 14.3 g/dL (12.0-15.5) 11.2 g/dL (12.0-15.5) Hematocrit 44.0 % (36.0-47.0) 34.6 % (36.0-47.0) Mean Corpuscular Volume 76 fL (79-100) 76 fL (79-100) Mean Corpuscular Hemoglobin 25 pg (25-35) 25 pg (25-35) Mean Corpuscular Hemoglobin Concent 32 g/dL (31-37) 32 g/dL (31-37) Red Cell Distribution Width 13.7 % (11.5-14.5) 13.6 % (11.5-14.5) Platelet Count 209 x10^3/uL (140-400) 158 x10^3/uL (140-400) Neutrophils (%) (Auto) 57 % (31-73) 47 % (31-73) Lymphocytes (%) (Auto) 24 % (24-48) 36 % (24-48) Monocytes (%) (Auto) 19 % (0-9) 17 % (0-9) Eosinophils (%) (Auto) 0 % (0-3) 0 % (0-3) Basophils (%) (Auto) 0 % (0-3) 0 % (0-3) Neutrophils # (Auto) 2.3 x10^3uL (1.8-7.7) 1.6 x10^3uL (1.8-7.7) Lymphocytes # (Auto) 1.0 x10^3/uL (1.0-4.8) 1.2 x10^3/uL (1.0-4.8) Monocytes # (Auto) 0.8 x10^3/uL (0.0-1.1) 0.6 x10^3/uL (0.0-1.1) Eosinophils # (Auto) 0.0 x10^3/uL (0.0-0.7) 0.0 x10^3/uL (0.0-0.7) Basophils # (Auto) 0.0 x10^3/uL (0.0-0.2) 0.0 x10^3/uL (0.0-0.2) Segmented Neutrophils % 45 % (35-66) Band Neutrophils % 12 % (0-9) Lymphocytes % 24 % (24-48) Monocytes % 19 % (0-10) Platelet Estimate Adequate (ADEQUATE) Prothrombin Time 14.7 SEC (11.7-14.0) Prothromb Time International Ratio 1.2 (0.8-1.1) Urine Collection Type Unknown Urine Color Essence Urine Clarity Clear Urine pH 6.0 Urine Specific Garnavillo >=1.030 Urine Protein 100 mg/dL (NEG-TRACE) Urine Glucose (UA) Negative mg/dL (NEG) Urine Ketones (Stick) Trace mg/dL (NEG) Urine Blood Trace (NEG) Urine Nitrite Negative (NEG) Urine Bilirubin Small (NEG) Urine Urobilinogen Dipstick 1.0 mg/dL (0.2 mg/dL) Urine Leukocyte Esterase Trace (NEG) Urine RBC 6-10 /HPF (0-2) Urine WBC 5-10 /HPF (0-4) Urine Squamous Epithelial Cells Mod /LPF Urine Bacteria 0 /HPF (0-FEW) Urine Mucus Marked /LPF Sodium Level 138 mmol/L (136-145) 139 mmol/L (136-145) Potassium Level 2.8 mmol/L (3.5-5.1) 3.0 mmol/L (3.5-5.1) Chloride Level 98 mmol/L (98-107) 104 mmol/L (98-107) Carbon Dioxide Level 27 mmol/L (21-32) 27 mmol/L (21-32) Anion Gap 13 (6-14) 8 (6-14) Blood Urea Nitrogen 10 mg/dL (7-20) 7 mg/dL (7-20) Creatinine 0.7 mg/dL (0.6-1.0) 0.6 mg/dL (0.6-1.0) Estimated GFR (Cockcroft-Gault) 129.1 154.2 Glucose Level 113 mg/dL (70-99) 108 mg/dL (70-99) Calcium Level 9.9 mg/dL (8.5-10.1) 8.3 mg/dL (8.5-10.1) Magnesium Level 2.0 mg/dL (1.8-2.4) Total Bilirubin 0.7 mg/dL (0.2-1.0) Direct Bilirubin 0.1 mg/dL (0.0-0.2) Aspartate Amino Transf (AST/SGOT) 25 U/L (15-37) Alanine Aminotransferase (ALT/SGPT) 22 U/L (14-59) Alkaline Phosphatase 90 U/L (46-116) Creatine Kinase 41 U/L (26-192) Creatine Kinase MB (Mass) < 0.5 ng/mL (0.0-3.6) Creatine Kinase MB Relative Index 1.2 % (0-4) Troponin I Quantitative < 0.017 ng/mL (0.000-0.055) WM-Opk-G-Type Natriuretic Peptide 21 pg/mL (0-124) Total Protein 9.4 g/dL (6.4-8.2) Albumin 4.4 g/dL (3.4-5.0) Lipase 81 U/L (73-393) Thyroid Stimulating Hormone (TSH) < 0.007 uIU/mL (0.358-3.74) Free Thyroxine 1.88 ng/dL (0.76-1.46) Urine Opiates Screen Neg (NEG) Urine Methadone Screen Neg (NEG) Urine Barbiturates Neg (NEG) Urine Phencyclidine Screen Neg (NEG) Urine Amphetamine/Methamphetamine Neg (NEG) Urine Benzodiazepines Screen Neg (NEG) Urine Cocaine Screen Neg (NEG) Urine Cannabinoids Screen Pos (NEG) Urine Ethyl Alcohol Neg (NEG) Medications Current Medications Sodium Chloride 1,000 ml @ 1,000 mls/hr Q1H IV Last administered on 03/06/17 16:28; Start 03/06/17 at 16:12; Stop 03/06/17 at 17:11; Status DC Ondansetron HCl (Zofran) 4 mg 1X ONCE IV Last administered on 03/06/17 16:29; Start 03/06/17 at 16:15; Stop 03/06/17 at 16:16; Status DC Fentanyl Citrate (Fentanyl 2ml Vial) 25 mcg PRN Q15MIN PRN IV PAIN GREATER THAN 3/10 Last administered on 03/06/17 17:36; Start 03/06/17 at 16:45; Stop 03/06 at 18:01; Status DC Iohexol (Omnipaque 300 Mg/ml) 75 ml 1X ONCE IV Last administered on 03/06/17 17:15; Start 03/06/17 at 17:15; Stop 03/06/17 at 17:16; Status DC Iohexol (Omnipaque 240 Mg/ml) 50 ml 1X ONCE PO Last administered on 03/06/17 17:15; Start 03/06/17 at 17:15; Stop 03/06/17 at 17:16; Status DC Info (Do NOT chart on this entry -- for MONITORING) 1 each PRN DAILY PRN MC SEE COMMENTS; Start 03/06/17 at 17:00; Stop 03/08/17 at 16:59 Promethazine HCl 25 mg/Sodium Chloride 51 ml @ 101 mls/hr 1X ONCE IV Last administered on 03/06/17 18:14; Start 03/06/17 at 18:00; Stop 03/06/17 at 18:30; Status DC Ondansetron HCl (Zofran) 4 mg PRN Q8HRS PRN IV NAUSEA/VOMITING; Start 03/06/17 at 18:00; Stop 03/07/17 at 17:59 Fentanyl Citrate (Fentanyl 2ml Vial) 50 mcg PRN Q2HR PRN IV PAIN Last administered on 03/07/17 09:12; Start 03/06/17 at 18:00; Stop 03/07/17 at 17:59 Potassium Chloride 100 ml @ 100 mls/hr Q1H IV Last administered on 03/06/17 23 :23; Start 03/06/17 at 19:00; Stop 03/06/17 at 22:59; Status DC Sodium Chloride 1,000 ml @ 75 mls/hr [id number] IV Last administered on 03/07/17 09:13; Start 03/06/17 at 20:00; Stop 03/07/17 at 10:43; Status DC Propranolol HCl (Inderal) 10 mg BID PO Last administered on 03/07/17 08:58; Start 03/06/17 at 20:30 Promethazine HCl/ Codeine (Phenergan With Codeine) 5 ml PRN Q4HRS PRN PO COUGH Last administered on 03/07/17 08:58; Start 03/07/17 at 03:00 Potassium Chloride (Klor-Con) 40 meq 1X ONCE PO ; Start 03/07/17 at 11:00; Stop 03/07/17 at 11:01; Status DC Potassium Chloride/Sodium Chloride 1,000 ml @ 75 mls/hr [id number] IV ; Start 03/07 at 11:00 Sodium Chloride 1,000 ml @ 75 mls/hr [id number] IV ; Start 03/07/17 at 11:00 Vitals/I & O Vital Sign - Last 24 Hours 03/06/17 03/06/17 03/06/17 03/06/17 15:52 16:26 16:46 16:56 Temp 98.5 98.5 Pulse 122 124 102 Resp 18 23 18 24 B/P (MAP) 143/83 (103) 117/73 (88) 129/63 (85) Pulse Ox 100 100 100 O2 Delivery Room Air Room Air Room Air 03/06/17 03/06/17 03/06/17 03/06/17 17:26 17:36 18:50 21:04 Temp 99.9 99.9 Pulse 110 72 72 Resp 27 18 20 B/P (MAP) 128/72 (90) 145/72 (96) 145/72 Pulse Ox 100 98 O2 Delivery Room Air Room Air 03/06/17 03/06/17 03/06/17 03/06/17 21:05 23:00 23:24 23:59 Temp 99.3 99.3 Pulse 109 Resp 16 18 15 15 B/P (MAP) 106/62 (77) Pulse Ox 98 98 98 98 O2 Delivery Room Air Room Air Room Air Room Air 03/07/17 03/07/17 03/07/17 03/07/17 03:00 07:00 08:00 08:58 Temp 99.7 99.5 99.7 99.5 Pulse 101 90 90 Resp 18 18 B/P (MAP) 106/55 (72) 109/76 (87) 109/76 Pulse Ox 99 100 O2 Delivery Room Air Room Air Room Air 03/07/17 09:12 Resp 20 Pulse Ox 100 O2 Delivery Room Air Intake and Output 03/06/17 03/06/17 03/07/17 15:00 23:00 07:00 Intake Total 1000 ml Balance 1000 ml EUNICE YA MD Mar 07, 2017 11:08
[2017-03-07 11:10] VITALS: BP 102/84
[2017-03-07] MEDS: AZITHROMYCIN 250 MG TABLET. PO SCH (11:45)
--- NOTE | 2017-03-07 12:16 | EKG ---
[facility] [address] [place] [address] Test Date: 2017-03-06 Test Time: 16:01:02 Pat Name: JOSE LOPEZ Department: Room: Gender: F Drop Clipper: : 1995 Requested By: JACK PEREZ Order Number: [id number] Reading MD: Measurements Intervals Cameron Rate: 109 P: 0 KS: 124 QRS: -1 QRSD: 82 T: 42 QT: 290 QTc: 392 Interpretive Statements SINUS TACHYCARDIA LEFT ATRIAL ABNORMALITY LEFTWARD AXIS INCOMPLETE RIGHT BUNDLE BRANCH BLOCK ST & T ABNORMALITY, CONSIDER LATERAL ISCHEMIA OR LEFT VENTRICULAR STRAIN RI6.01 Unconfirmed report No previous ECG available for comparison
[2017-03-07 15:00] VITALS: BP 105/82
--- NOTE | 2017-03-07 15:57 | PDOC2 ---
CONSULT Date of Consult Date of Consult DATE: 03/07/17 TIME: 15:57 Reason for Consult Reason for Consult: ASTHMA/COUGH Identification/Chief Complaint Chief Complaint MULTIPLE NON SPECIFIC COMPLAINTS Problems: Source Source: Chart review, Patient History of Present Illness Reason for Visit: PT CAME IN FOR MUTLTIPLE COMPLAINTS HURTING ALL OVER "BONES HURTING" NO MORE SOA CT CHEST OBTAINED SHOWED ALVEOLITIS I WAS CONSULTED PT MOVED HERE SOUNDS LIKE ASTHMA IS NOT WELL CONTROLLED WITH ALBUTEROL SHE DOES NOT KNOW HER MED NOW MOSTLY COUGH NON PRODUCTIVE NOT SOA NO WHEEZE Past Medical History Pulmonary: Asthma (USES ALBUTEROL PRN) Musculoskeletal: Osteoarthritis Endocrine: Other (GRAVES) Social History <1 pack per day Current Problem List Problem List Problems Medical Problems: (1) Abdominal pain Status: Acute (2) Graves disease Status: Acute Current Medications Current Medications Current Medications Sodium Chloride 1,000 ml @ 1,000 mls/hr Q1H IV Last administered on 03/06/17 16:28; Start 03/06/17 at 16:12; Stop 03/06/17 at 17:11; Status DC Ondansetron HCl (Zofran) 4 mg 1X ONCE IV Last administered on 03/06/17 16:29; Start 03/06/17 at 16:15; Stop 03/06/17 at 16:16; Status DC Fentanyl Citrate (Fentanyl 2ml Vial) 25 mcg PRN Q15MIN PRN IV PAIN GREATER THAN 3/10 Last administered on 03/06/17 17:36; Start 03/06/17 at 16:45; Stop 03/06 at 18:01; Status DC Iohexol (Omnipaque 300 Mg/ml) 75 ml 1X ONCE IV Last administered on 03/06/17 17:15; Start 03/06/17 at 17:15; Stop 03/06/17 at 17:16; Status DC Iohexol (Omnipaque 240 Mg/ml) 50 ml 1X ONCE PO Last administered on 03/06/17 17:15; Start 03/06/17 at 17:15; Stop 03/06/17 at 17:16; Status DC Info (Do NOT chart on this entry -- for MONITORING) 1 each PRN DAILY PRN MC SEE COMMENTS; Start 03/06/17 at 17:00; Stop 03/08/17 at 16:59 Promethazine HCl 25 mg/Sodium Chloride 51 ml @ 101 mls/hr 1X ONCE IV Last administered on 03/06/17 18:14; Start 03/06/17 at 18:00; Stop 03/06/17 at 18:30; Status DC Ondansetron HCl (Zofran) 4 mg PRN Q8HRS PRN IV NAUSEA/VOMITING; Start 03/06/17 at 18:00; Stop 03/07/17 at 17:59 Fentanyl Citrate (Fentanyl 2ml Vial) 50 mcg PRN Q2HR PRN IV PAIN Last administered on 03/07/17 15:49; Start 03/06/17 at 18:00; Stop 03/07/17 at 17:59 Potassium Chloride 100 ml @ 100 mls/hr Q1H IV Last administered on 03/06/17 23 :23; Start 03/06/17 at 19:00; Stop 03/06/17 at 22:59; Status DC Sodium Chloride 1,000 ml @ 75 mls/hr [id number] IV Last administered on 03/07/17 09:13; Start 03/06/17 at 20:00; Stop 03/07/17 at 10:43; Status DC Propranolol HCl (Inderal) 10 mg BID PO Last administered on 03/07/17 08:58; Start 03/06/17 at 20:30 Promethazine HCl/ Codeine (Phenergan With Codeine) 5 ml PRN Q4HRS PRN PO COUGH Last administered on 03/07/17 08:58; Start 03/07/17 at 03:00 Potassium Chloride (Klor-Con) 40 meq 1X ONCE PO Last administered on 03/07/17 11:45; Start 03/07/17 at 11:00; Stop 03/07/17 at 11:01; Status DC Potassium Chloride/Sodium Chloride 1,000 ml @ 75 mls/hr [id number] IV ; Start 03/07 at 11:00; Stop 03/07/17 at 12:18; Status DC Sodium Chloride 1,000 ml @ 75 mls/hr [id number] IV ; Start 03/07/17 at 11:00 Ceftriaxone Sodium 1 gm/ Sodium Chloride 50 ml @ 100 mls/hr Q24H IV Last administered on 03/07/17 12:04; Start 03/07/17 at 12:00 Azithromycin (Zithromax) 250 mg DAILY PO Last administered on 03/07/17t 11:45; Start 03/07/17 at 12:00; Stop 03/13/17 at 11:59 Allergies Allergies: Coded Allergies: morphine (Verified Allergy, Severe, "makes me go crazy", 03/06/17) Physical Exam General: Alert HEENT: EOMI Lungs: Normal air movement Heart: Normal S1, Normal S2 Abdomen: Normal bowel sounds, Soft Extremities: No clubbing, No cyanosis, No edema Skin: No rashes, No breakdown Vitals VITALS Vital Signs Date Time Temp Pulse Resp B/P (MAP) Pulse Ox O2 Delivery O2 Flow Rate FiO2 03/07/17 15:49 20 100 Room Air 03/07/17 15:39 101.2 101.2 03/07/17 15:00 94 105/82 (90) Labs Labs Laboratory Tests Test 03/06/17 16:00 03/07/17 03:00 03/07/17 03:30 White Blood Count 4.1 x10^3/uL (4.0-11.0) 3.4 x10^3/uL (4.0-11.0) Red Blood Count 5.77 x10^6/uL (3.50-5.40) 4.53 x10^6/uL (3.50-5.40) Hemoglobin 14.3 g/dL (12.0-15.5) 11.2 g/dL (12.0-15.5) Hematocrit 44.0 % (36.0-47.0) 34.6 % (36.0-47.0) Mean Corpuscular Volume 76 fL (79-100) 76 fL (79-100) Mean Corpuscular Hemoglobin 25 pg (25-35) 25 pg (25-35) Mean Corpuscular Hemoglobin Concent 32 g/dL (31-37) 32 g/dL (31-37) Red Cell Distribution Width 13.7 % (11.5-14.5) 13.6 % (11.5-14.5) Platelet Count 209 x10^3/uL (140-400) 158 x10^3/uL (140-400) Neutrophils (%) (Auto) 57 % (31-73) 47 % (31-73) Lymphocytes (%) (Auto) 24 % (24-48) 36 % (24-48) Monocytes (%) (Auto) 19 % (0-9) 17 % (0-9) Eosinophils (%) (Auto) 0 % (0-3) 0 % (0-3) Basophils (%) (Auto) 0 % (0-3) 0 % (0-3) Neutrophils # (Auto) 2.3 x10^3uL (1.8-7.7) 1.6 x10^3uL (1.8-7.7) Lymphocytes # (Auto) 1.0 x10^3/uL (1.0-4.8) 1.2 x10^3/uL (1.0-4.8) Monocytes # (Auto) 0.8 x10^3/uL (0.0-1.1) 0.6 x10^3/uL (0.0-1.1) Eosinophils # (Auto) 0.0 x10^3/uL (0.0-0.7) 0.0 x10^3/uL (0.0-0.7) Basophils # (Auto) 0.0 x10^3/uL (0.0-0.2) 0.0 x10^3/uL (0.0-0.2) Segmented Neutrophils % 45 % (35-66) Band Neutrophils % 12 % (0-9) Lymphocytes % 24 % (24-48) Monocytes % 19 % (0-10) Platelet Estimate Adequate (ADEQUATE) Prothrombin Time 14.7 SEC (11.7-14.0) Prothromb Time International Ratio 1.2 (0.8-1.1) Urine Collection Type Unknown Urine Color Essence Urine Clarity Clear Urine pH 6.0 Urine Specific [place] >=1.030 Urine Protein 100 mg/dL (NEG-TRACE) Urine Glucose (UA) Negative mg/dL (NEG) Urine Ketones (Stick) Trace mg/dL (NEG) Urine Blood Trace (NEG) Urine Nitrite Negative (NEG) Urine Bilirubin Small (NEG) Urine Urobilinogen Dipstick 1.0 mg/dL (0.2 mg/dL) Urine Leukocyte Esterase Trace (NEG) Urine RBC 6-10 /HPF (0-2) Urine WBC 5-10 /HPF (0-4) Urine Squamous Epithelial Cells Mod /LPF Urine Bacteria 0 /HPF (0-FEW) Urine Mucus Marked /LPF Sodium Level 138 mmol/L (136-145) 139 mmol/L (136-145) Potassium Level 2.8 mmol/L (3.5-5.1) 3.0 mmol/L (3.5-5.1) Chloride Level 98 mmol/L (98-107) 104 mmol/L (98-107) Carbon Dioxide Level 27 mmol/L (21-32) 27 mmol/L (21-32) Anion Gap 13 (6-14) 8 (6-14) Blood Urea Nitrogen 10 mg/dL (7-20) 7 mg/dL (7-20) Creatinine 0.7 mg/dL (0.6-1.0) 0.6 mg/dL (0.6-1.0) Estimated GFR (Cockcroft-Gault) 129.1 154.2 Glucose Level 113 mg/dL (70-99) 108 mg/dL (70-99) Calcium Level 9.9 mg/dL (8.5-10.1) 8.3 mg/dL (8.5-10.1) Magnesium Level 2.0 mg/dL (1.8-2.4) Total Bilirubin 0.7 mg/dL (0.2-1.0) Direct Bilirubin 0.1 mg/dL (0.0-0.2) Aspartate Amino Transf (AST/SGOT) 25 U/L (15-37) Alanine Aminotransferase (ALT/SGPT) 22 U/L (14-59) Alkaline Phosphatase 90 U/L (46-116) Creatine Kinase 41 U/L (26-192) Creatine Kinase MB (Mass) < 0.5 ng/mL (0.0-3.6) Creatine Kinase MB Relative Index 1.2 % (0-4) Troponin I Quantitative < 0.017 ng/mL (0.000-0.055) ME-Cxp-F-Type Natriuretic Peptide 21 pg/mL (0-124) Total Protein 9.4 g/dL (6.4-8.2) Albumin 4.4 g/dL (3.4-5.0) Lipase 81 U/L (73-393) Thyroid Stimulating Hormone (TSH) < 0.007 uIU/mL (0.358-3.74) Free Thyroxine 1.88 ng/dL (0.76-1.46) Urine Opiates Screen Neg (NEG) Urine Methadone Screen Neg (NEG) Urine Barbiturates Neg (NEG) Urine Phencyclidine Screen Neg (NEG) Urine Amphetamine/Methamphetamine Neg (NEG) Urine Benzodiazepines Screen Neg (NEG) Urine Cocaine Screen Neg (NEG) Urine Cannabinoids Screen Pos (NEG) Urine Ethyl Alcohol Neg (NEG) Laboratory Tests Test 03/06/17 16:00 03/07/17 03:00 03/07/17 03:30 White Blood Count 4.1 x10^3/uL (4.0-11.0) 3.4 x10^3/uL (4.0-11.0) Red Blood Count 5.77 x10^6/uL (3.50-5.40) 4.53 x10^6/uL (3.50-5.40) Hemoglobin 14.3 g/dL (12.0-15.5) 11.2 g/dL (12.0-15.5) Hematocrit 44.0 % (36.0-47.0) 34.6 % (36.0-47.0) Mean Corpuscular Volume 76 fL (79-100) 76 fL (79-100) Mean Corpuscular Hemoglobin 25 pg (25-35) 25 pg (25-35) Mean Corpuscular Hemoglobin Concent 32 g/dL (31-37) 32 g/dL (31-37) Red Cell Distribution Width 13.7 % (11.5-14.5) 13.6 % (11.5-14.5) Platelet Count 209 x10^3/uL (140-400) 158 x10^3/uL (140-400) Neutrophils (%) (Auto) 57 % (31-73) 47 % (31-73) Lymphocytes (%) (Auto) 24 % (24-48) 36 % (24-48) Monocytes (%) (Auto) 19 % (0-9) 17 % (0-9) Eosinophils (%) (Auto) 0 % (0-3) 0 % (0-3) Basophils (%) (Auto) 0 % (0-3) 0 % (0-3) Neutrophils # (Auto) 2.3 x10^3uL (1.8-7.7) 1.6 x10^3uL (1.8-7.7) Lymphocytes # (Auto) 1.0 x10^3/uL (1.0-4.8) 1.2 x10^3/uL (1.0-4.8) Monocytes # (Auto) 0.8 x10^3/uL (0.0-1.1) 0.6 x10^3/uL (0.0-1.1) Eosinophils # (Auto) 0.0 x10^3/uL (0.0-0.7) 0.0 x10^3/uL (0.0-0.7) Basophils # (Auto) 0.0 x10^3/uL (0.0-0.2) 0.0 x10^3/uL (0.0-0.2) Segmented Neutrophils % 45 % (35-66) Band Neutrophils % 12 % (0-9) Lymphocytes % 24 % (24-48) Monocytes % 19 % (0-10) Platelet Estimate Adequate (ADEQUATE) Prothrombin Time 14.7 SEC (11.7-14.0) Prothromb Time International Ratio 1.2 (0.8-1.1) Urine Collection Type Unknown Urine Color Essence Urine Clarity Clear Urine pH 6.0 Urine Specific [place] >=1.030 Urine Protein 100 mg/dL (NEG-TRACE) Urine Glucose (UA) Negative mg/dL (NEG) Urine Ketones (Stick) Trace mg/dL (NEG) Urine Blood Trace (NEG) Urine Nitrite Negative (NEG) Urine Bilirubin Small (NEG) Urine Urobilinogen Dipstick 1.0 mg/dL (0.2 mg/dL) Urine Leukocyte Esterase Trace (NEG) Urine RBC 6-10 /HPF (0-2) Urine WBC 5-10 /HPF (0-4) Urine Squamous Epithelial Cells Mod /LPF Urine Bacteria 0 /HPF (0-FEW) Urine Mucus Marked /LPF Sodium Level 138 mmol/L (136-145) 139 mmol/L (136-145) Potassium Level 2.8 mmol/L (3.5-5.1) 3.0 mmol/L (3.5-5.1) Chloride Level 98 mmol/L (98-107) 104 mmol/L (98-107) Carbon Dioxide Level 27 mmol/L (21-32) 27 mmol/L (21-32) Anion Gap 13 (6-14) 8 (6-14) Blood Urea Nitrogen 10 mg/dL (7-20) 7 mg/dL (7-20) Creatinine 0.7 mg/dL (0.6-1.0) 0.6 mg/dL (0.6-1.0) Estimated GFR (Cockcroft-Gault) 129.1 154.2 Glucose Level 113 mg/dL (70-99) 108 mg/dL (70-99) Calcium Level 9.9 mg/dL (8.5-10.1) 8.3 mg/dL (8.5-10.1) Magnesium Level 2.0 mg/dL (1.8-2.4) Total Bilirubin 0.7 mg/dL (0.2-1.0) Direct Bilirubin 0.1 mg/dL (0.0-0.2) Aspartate Amino Transf (AST/SGOT) 25 U/L (15-37) Alanine Aminotransferase (ALT/SGPT) 22 U/L (14-59) Alkaline Phosphatase 90 U/L (46-116) Creatine Kinase 41 U/L (26-192) Creatine Kinase MB (Mass) < 0.5 ng/mL (0.0-3.6) Creatine Kinase MB Relative Index 1.2 % (0-4) Troponin I Quantitative < 0.017 ng/mL (0.000-0.055) FS-Mkt-P-Type Natriuretic Peptide 21 pg/mL (0-124) Total Protein 9.4 g/dL (6.4-8.2) Albumin 4.4 g/dL (3.4-5.0) Lipase 81 U/L (73-393) Thyroid Stimulating Hormone (TSH) < 0.007 uIU/mL (0.358-3.74) Free Thyroxine 1.88 ng/dL (0.76-1.46) Urine Opiates Screen Neg (NEG) Urine Methadone Screen Neg (NEG) Urine Barbiturates Neg (NEG) Urine Phencyclidine Screen Neg (NEG) Urine Amphetamine/Methamphetamine Neg (NEG) Urine Benzodiazepines Screen Neg (NEG) Urine Cocaine Screen Neg (NEG) Urine Cannabinoids Screen Pos (NEG) Urine Ethyl Alcohol Neg (NEG) Images Images 1. No evidence of pulmonary embolism. 2. The esophagus is mildly patulous with fluid distention of the esophagus. Nonspecific, Scleroderma not completely excluded. 3. Multiple groundglass patchy airspace opacities identified in the right middle lobe and bibasilar lungs likely pneumonia or mucous plugging or aspiration. 4. No acute intra-abdominal findings. Assessment/Plan Assessment/Plan MILD ASTHMA EXAC ALVEOLITIS POSSIBLY RELATED TO INHALATION OF MARIJUANA MULTIPLE OTHER COMPLAINS PLAN ADD FLOVENT ALBUTEROL PRN AVOID CAFFEINE AVOID MARIJUANA AND TOBACCO KEILY BECKWITH MD Mar 07, 2017 15:57
[2017-03-07] MEDS ORDERED: predniSONE 10 MG TABLET PO SCH (16:30)
[2017-03-07] MEDS ORDERED: predniSONE 20 MG TABLET PO SCH (16:30)
[2017-03-07] MEDS: ACETAMINOPHEN 650 MG/20.3 ML SOLUTION. PO PRN (18:58)
[2017-03-07 19:00] VITALS: BP 111/70
[2017-03-07 23:00] VITALS: BP 109/41
[2017-03-08] MEDS: IV NORMAL SALINE 1000ML BAG 1,000 ML IV SCH (00:14)
[2017-03-08 03:00] VITALS: BP 119/82
[2017-03-08] MEDS: PROMETH/CODEINE 6.25/10MG 5 ML SYRUP. PO PRN ×2 (03:29→08:46)
[2017-03-08] MEDS: fentaNYL PF VIAL 100 MCG/2 ML VIAL IV PRN ×2 (04:26→08:47)
[2017-03-08 07:00] VITALS: BP 125/93
[2017-03-08] MEDS: ACETAMINOPHEN 650 MG/20.3 ML SOLUTION. PO PRN (08:42)
[2017-03-08] MEDS: AZITHROMYCIN 250 MG TABLET. PO SCH (08:42)
[2017-03-08] MEDS: PROPRANOLOL 10 MG TABLET. PO SCH (08:45)
[2017-03-08] MEDS ORDERED: POTASSIUM CHLORIDE 20 MEQ TABLET.ER. PO SCH (09:45)
[2017-03-08] MEDS ORDERED: ALBUTEROL SULFATE 2.5 MG/3 ML NEBU. NEB PRN (10:00)
[2017-03-08] MEDS ORDERED: methIMAzole 10 MG TABLET PO SCH ×2 (10:00)
[2017-03-08] MEDS ORDERED: ONDANSETRON PF 4 MG/2 ML VIAL. IV PRN (10:00)
[2017-03-08] MEDS ORDERED: BUDESONIDE 0.5 MG/2 ML NEBU. NEB ONE (10:00)
[2017-03-08] MEDS ORDERED: PROP10TA PO (10:29)
[2017-03-08] MEDS ORDERED: METH-364 PO (10:29)
[2017-03-08] MEDS ORDERED: AZIT250T6 PO (10:29)
[2017-03-08] MEDS ORDERED: POTA20TA82 PO (10:29)
--- NOTE | 2017-03-08 10:32 | PDOC2 ---
IM Consult Reason for consult Fever/Pneumonia Referring physician Dr. More Date of Admission DATE: 03/08/17 TIME: 10:22 Chief Complaint Chief Complaint Hurt all over HPI: Patient is a 21 year old -English female who moved from [place] presents with with multiple complains. She states that 2 days ago she started having body aches with pain, abdominal pain, she vomits anytime she drinks water and she will episode of nonbloody stools this morning. She states she has a history of Graves' disease but does not take her medicine because it makes her feel bad. She does have a cough that she's had for the last several days. She states her abdominal pains been there for 2 days and it's constant nothing makes it better or worse.She has had fever and has lost 60 lbs in a month. Her 2 year old has been ill with cough and fever Problems: Past Medical History Pulmonary: Asthma (USES ALBUTEROL PRN) Musculoskeletal: Osteoarthritis Endocrine: Other (GRAVES) Review of Symptoms Review of Symptoms General ROS: positive for - weight loss Psychological ROS: negative Ophthalmic ROS: negative ENT ROS: negative Allergy and Immunology ROS: negative Hematology and Lymphatic: negative Endocrine ROS: untreated Graves Respiratory ROS: no cold,dyspnea. Cardiovascular ROS: no chest pain Gastrointestinal ROS: no abdominal pain, change in bowel habits - always has loose stool Genito-Urinary ROS: no dysuria, trouble voiding, or hematuria Musculoskeletal ROS: no pain Neurological ROS: negative Dermatological ROS: no rash Medications Current Medications Acetaminophen (Tylenol) 650 mg PRN Q4HRS PRN PO MILD PAIN / TEMP Last administered on 03/08/17 08:42; Start 03/07/17 at 18:15 Albuterol Sulfate (Ventolin Neb Soln) 2.5 mg PRN Q4HRS PRN NEB SHORTNESS OF BREATH; Start 03/08/17 at 10:00 Albuterol Sulfate (Ventolin Neb Soln) 2.5 mg RTQID NEB ; Start 03/08/17 at 12:00 Azithromycin (Zithromax) 250 mg DAILY PO Last administered on 03/08/17 08:42; Start 03/07/17 at 12:00; Stop 03/13/17 at 11:59 Budesonide (Pulmicort) 0.5 mg 1X ONCE NEB ; Start 03/08/17 at 10:00; Stop 03/08 at 10:01; Status UNV Budesonide (Pulmicort) 0.5 mg RTBID NEB ; Start 03/08/17 at 20:00; Status UNV Ceftriaxone Sodium 1 gm/ Sodium Chloride 50 ml @ 100 mls/hr Q24H IV Last administered on 03/07/17 12:04; Start 03/07/17 at 12:00; Stop 03/07/17 at 16:27; Status DC Fentanyl Citrate (Fentanyl 2ml Vial) 25 mcg PRN Q2HR PRN IV SEVERE PAIN Last administered on 03/08/17 08:47; Start 03/08/17 at 03:45 Methimazole (Tapazole) 10 mg DAILY PO ; Start 03/08/17 at 10:00; Stop 03/08/17 at 10:03; Status DC Methimazole (Tapazole) 10 mg TID PO ; Start 03/08/17 at 14:00; Status UNV Ondansetron HCl (Zofran) 4 mg PRN Q8HRS PRN IV NAUSEA/VOMITING; Start 03/08/17 at 10:00 Potassium Chloride/Sodium Chloride 1,000 ml @ 75 mls/hr [id number] IV ; Start 03/07 at 11:00; Stop 03/07/17 at 12:18; Status DC Potassium Chloride (Klor-Con) 40 meq 1X ONCE PO Last administered on 03/07/17 11:45; Start 03/07/17 at 11:00; Stop 03/07/17 at 11:01; Status DC Potassium Chloride (Klor-Con) 40 meq BIDWMEALS PO ; Start 03/08/17 at 09:45 Prednisone (Prednisone) 30 mg DAILY PO ; Start 03/07/17 at 16:30; Stop 03/07/17 at 16:30; Status DC Prednisone (Prednisone) 30 mg DAILY PO Last administered on 03/08/17 08:44; Start 03/07/17 at 16:30 Sodium Chloride 1,000 ml @ 125 mls/hr Q8H IV Last administered on 03/08/17 00 :14; Start 03/07/17 at 11:00 Allergy Allergies Coded Allergies Type Severity Reaction Last Updated Verified morphine Allergy Severe "makes me go crazy" 03/06/17 Yes Physical Exam Physical Exam General appearance - alert,well appearing, and in no distress and oriented to person, place, and time Mental Status - alert, oriented to person, place, and time, affect appropriate to mood HEENT:PERRLA. OC/Op - lcear NECK. No JVD. + goiter. mild KATE Head - normal Chest - clear to auscultation, no wheezes, rales or rhonchi, symmetric air entry Heart - S1 and S2 normal, trace tachy Abdomen - soft, nontender, nondistended, no masses or organomegaly Neurological - alert and oriented Musculoskeletal - no muscular tenderness noted Extremities - no pedal edema Skin - warm and dry Labs Laboratory Tests Test 03/06/17 15:01 03/06/17 16:00 03/07/17 03:00 03/07/17 03:30 Bedside Urine HCG, Qualitative Hcg negative (Negative) White Blood Count 4.1 x10^3/uL (4.0-11.0) 3.4 x10^3/uL (4.0-11.0) Red Blood Count 5.77 x10^6/uL (3.50-5.40) 4.53 x10^6/uL (3.50-5.40) Hemoglobin 14.3 g/dL (12.0-15.5) 11.2 g/dL (12.0-15.5) Hematocrit 44.0 % (36.0-47.0) 34.6 % (36.0-47.0) Mean Corpuscular Volume 76 fL (79-100) 76 fL (79-100) Mean Corpuscular Hemoglobin 25 pg (25-35) 25 pg (25-35) Mean Corpuscular Hemoglobin Concent 32 g/dL (31-37) 32 g/dL (31-37) Red Cell Distribution Width 13.7 % (11.5-14.5) 13.6 % (11.5-14.5) Platelet Count 209 x10^3/uL (140-400) 158 x10^3/uL (140-400) Neutrophils (%) (Auto) 57 % (31-73) 47 % (31-73) Lymphocytes (%) (Auto) 24 % (24-48) 36 % (24-48) Monocytes (%) (Auto) 19 % (0-9) 17 % (0-9) Eosinophils (%) (Auto) 0 % (0-3) 0 % (0-3) Basophils (%) (Auto) 0 % (0-3) 0 % (0-3) Neutrophils # (Auto) 2.3 x10^3uL (1.8-7.7) 1.6 x10^3uL (1.8-7.7) Lymphocytes # (Auto) 1.0 x10^3/uL (1.0-4.8) 1.2 x10^3/uL (1.0-4.8) Monocytes # (Auto) 0.8 x10^3/uL (0.0-1.1) 0.6 x10^3/uL (0.0-1.1) Eosinophils # (Auto) 0.0 x10^3/uL (0.0-0.7) 0.0 x10^3/uL (0.0-0.7) Basophils # (Auto) 0.0 x10^3/uL (0.0-0.2) 0.0 x10^3/uL (0.0-0.2) Segmented Neutrophils % 45 % (35-66) Band Neutrophils % 12 % (0-9) Lymphocytes % 24 % (24-48) Monocytes % 19 % (0-10) Platelet Estimate Adequate (ADEQUATE) Prothrombin Time 14.7 SEC (11.7-14.0) Prothromb Time International Ratio 1.2 (0.8-1.1) Urine Collection Type Unknown Urine Color Essence Urine Clarity Clear Urine pH 6.0 Urine Specific [place] >=1.030 Urine Protein 100 mg/dL (NEG-TRACE) Urine Glucose (UA) Negative mg/dL (NEG) Urine Ketones (Stick) Trace mg/dL (NEG) Urine Blood Trace (NEG) Urine Nitrite Negative (NEG) Urine Bilirubin Small (NEG) Urine Urobilinogen Dipstick 1.0 mg/dL (0.2 mg/dL) Urine Leukocyte Esterase Trace (NEG) Urine RBC 6-10 /HPF (0-2) Urine WBC 5-10 /HPF (0-4) Urine Squamous Epithelial Cells Mod /LPF Urine Bacteria 0 /HPF (0-FEW) Urine Mucus Marked /LPF Sodium Level 138 mmol/L (136-145) 139 mmol/L (136-145) Potassium Level 2.8 mmol/L (3.5-5.1) 3.0 mmol/L (3.5-5.1) Chloride Level 98 mmol/L (98-107) 104 mmol/L (98-107) Carbon Dioxide Level 27 mmol/L (21-32) 27 mmol/L (21-32) Anion Gap 13 (6-14) 8 (6-14) Blood Urea Nitrogen 10 mg/dL (7-20) 7 mg/dL (7-20) Creatinine 0.7 mg/dL (0.6-1.0) 0.6 mg/dL (0.6-1.0) Estimated GFR (Cockcroft-Gault) 129.1 154.2 Glucose Level 113 mg/dL (70-99) 108 mg/dL (70-99) Calcium Level 9.9 mg/dL (8.5-10.1) 8.3 mg/dL (8.5-10.1) Magnesium Level 2.0 mg/dL (1.8-2.4) Total Bilirubin 0.7 mg/dL (0.2-1.0) Direct Bilirubin 0.1 mg/dL (0.0-0.2) Aspartate Amino Transf (AST/SGOT) 25 U/L (15-37) Alanine Aminotransferase (ALT/SGPT) 22 U/L (14-59) Alkaline Phosphatase 90 U/L (46-116) Creatine Kinase 41 U/L (26-192) Creatine Kinase MB (Mass) < 0.5 ng/mL (0.0-3.6) Creatine Kinase MB Relative Index 1.2 % (0-4) Troponin I Quantitative < 0.017 ng/mL (0.000-0.055) NW-Nhx-E-Type Natriuretic Peptide 21 pg/mL (0-124) Total Protein 9.4 g/dL (6.4-8.2) Albumin 4.4 g/dL (3.4-5.0) Lipase 81 U/L (73-393) Thyroid Stimulating Hormone (TSH) < 0.007 uIU/mL (0.358-3.74) Free Thyroxine 1.88 ng/dL (0.76-1.46) Urine Opiates Screen Neg (NEG) Urine Methadone Screen Neg (NEG) Urine Barbiturates Neg (NEG) Urine Phencyclidine Screen Neg (NEG) Urine Amphetamine/Methamphetamine Neg (NEG) Urine Benzodiazepines Screen Neg (NEG) Urine Cocaine Screen Neg (NEG) Urine Cannabinoids Screen Pos (NEG) Urine Ethyl Alcohol Neg (NEG) Vitals Vital Signs Date Time Temp Pulse Resp B/P (MAP) Pulse Ox O2 Delivery O2 Flow Rate FiO2 03/08/17 08:47 97 Room Air 03/08/17 08:45 88 125/93 03/08/17 07:00 100.0 18 100.0 Assessment Assessment Graves disease untreated Pneumonia - ? viral given her 2 year old is sick Fever ? ID vs Graves Leukopenia ? - viral Plan Plan Needs Endocrine eval /[facility] Can go home on Azithromycin Z-pack to cover potential bacterial D/w Dr. Jang D/w father RICHELLE AGUIRRE MD Mar 08, 2017 10:32
[2017-03-08 10:48] VITALS: BP 127/92
[2017-03-08] MEDS ORDERED: ALBUTEROL SULFATE 2.5 MG/3 ML NEBU. NEB SCH (12:00)
--- NOTE | 2017-03-08 12:17 | PDOC ---
PULMONARY PROGRESS NOTES Subjective feels better Vitals Vital Signs Date Time Temp Pulse Resp B/P (MAP) Pulse Ox O2 Delivery O2 Flow Rate FiO2 03/08/17 11:46 99 Room Air 03/08/17 10:48 98.1 85 18 127/92 (104) 98.1 General: Alert, Oriented X4, No acute distress Lungs: Clear Cardiovascular: S1 Abdomen: Soft Neuro Exam: Alert Extremities: No Edema Skin: Warm Labs Laboratory Tests Test 03/06/17 15:01 03/06/17 16:00 03/07/17 03:00 03/07/17 03:30 Bedside Urine HCG, Qualitative Hcg negative (Negative) White Blood Count 4.1 x10^3/uL (4.0-11.0) 3.4 x10^3/uL (4.0-11.0) Red Blood Count 5.77 x10^6/uL (3.50-5.40) 4.53 x10^6/uL (3.50-5.40) Hemoglobin 14.3 g/dL (12.0-15.5) 11.2 g/dL (12.0-15.5) Hematocrit 44.0 % (36.0-47.0) 34.6 % (36.0-47.0) Mean Corpuscular Volume 76 fL (79-100) 76 fL (79-100) Mean Corpuscular Hemoglobin 25 pg (25-35) 25 pg (25-35) Mean Corpuscular Hemoglobin Concent 32 g/dL (31-37) 32 g/dL (31-37) Red Cell Distribution Width 13.7 % (11.5-14.5) 13.6 % (11.5-14.5) Platelet Count 209 x10^3/uL (140-400) 158 x10^3/uL (140-400) Neutrophils (%) (Auto) 57 % (31-73) 47 % (31-73) Lymphocytes (%) (Auto) 24 % (24-48) 36 % (24-48) Monocytes (%) (Auto) 19 % (0-9) 17 % (0-9) Eosinophils (%) (Auto) 0 % (0-3) 0 % (0-3) Basophils (%) (Auto) 0 % (0-3) 0 % (0-3) Neutrophils # (Auto) 2.3 x10^3uL (1.8-7.7) 1.6 x10^3uL (1.8-7.7) Lymphocytes # (Auto) 1.0 x10^3/uL (1.0-4.8) 1.2 x10^3/uL (1.0-4.8) Monocytes # (Auto) 0.8 x10^3/uL (0.0-1.1) 0.6 x10^3/uL (0.0-1.1) Eosinophils # (Auto) 0.0 x10^3/uL (0.0-0.7) 0.0 x10^3/uL (0.0-0.7) Basophils # (Auto) 0.0 x10^3/uL (0.0-0.2) 0.0 x10^3/uL (0.0-0.2) Segmented Neutrophils % 45 % (35-66) Band Neutrophils % 12 % (0-9) Lymphocytes % 24 % (24-48) Monocytes % 19 % (0-10) Platelet Estimate Adequate (ADEQUATE) Prothrombin Time 14.7 SEC (11.7-14.0) Prothromb Time International Ratio 1.2 (0.8-1.1) Urine Collection Type Unknown Urine Color Essence Urine Clarity Clear Urine pH 6.0 Urine Specific [place] >=1.030 Urine Protein 100 mg/dL (NEG-TRACE) Urine Glucose (UA) Negative mg/dL (NEG) Urine Ketones (Stick) Trace mg/dL (NEG) Urine Blood Trace (NEG) Urine Nitrite Negative (NEG) Urine Bilirubin Small (NEG) Urine Urobilinogen Dipstick 1.0 mg/dL (0.2 mg/dL) Urine Leukocyte Esterase Trace (NEG) Urine RBC 6-10 /HPF (0-2) Urine WBC 5-10 /HPF (0-4) Urine Squamous Epithelial Cells Mod /LPF Urine Bacteria 0 /HPF (0-FEW) Urine Mucus Marked /LPF Sodium Level 138 mmol/L (136-145) 139 mmol/L (136-145) Potassium Level 2.8 mmol/L (3.5-5.1) 3.0 mmol/L (3.5-5.1) Chloride Level 98 mmol/L (98-107) 104 mmol/L (98-107) Carbon Dioxide Level 27 mmol/L (21-32) 27 mmol/L (21-32) Anion Gap 13 (6-14) 8 (6-14) Blood Urea Nitrogen 10 mg/dL (7-20) 7 mg/dL (7-20) Creatinine 0.7 mg/dL (0.6-1.0) 0.6 mg/dL (0.6-1.0) Estimated GFR (Cockcroft-Gault) 129.1 154.2 Glucose Level 113 mg/dL (70-99) 108 mg/dL (70-99) Calcium Level 9.9 mg/dL (8.5-10.1) 8.3 mg/dL (8.5-10.1) Magnesium Level 2.0 mg/dL (1.8-2.4) Total Bilirubin 0.7 mg/dL (0.2-1.0) Direct Bilirubin 0.1 mg/dL (0.0-0.2) Aspartate Amino Transf (AST/SGOT) 25 U/L (15-37) Alanine Aminotransferase (ALT/SGPT) 22 U/L (14-59) Alkaline Phosphatase 90 U/L (46-116) Creatine Kinase 41 U/L (26-192) Creatine Kinase MB (Mass) < 0.5 ng/mL (0.0-3.6) Creatine Kinase MB Relative Index 1.2 % (0-4) Troponin I Quantitative < 0.017 ng/mL (0.000-0.055) OC-Qbm-W-Type Natriuretic Peptide 21 pg/mL (0-124) Total Protein 9.4 g/dL (6.4-8.2) Albumin 4.4 g/dL (3.4-5.0) Lipase 81 U/L (73-393) Thyroid Stimulating Hormone (TSH) < 0.007 uIU/mL (0.358-3.74) Free Thyroxine 1.88 ng/dL (0.76-1.46) Urine Opiates Screen Neg (NEG) Urine Methadone Screen Neg (NEG) Urine Barbiturates Neg (NEG) Urine Phencyclidine Screen Neg (NEG) Urine Amphetamine/Methamphetamine Neg (NEG) Urine Benzodiazepines Screen Neg (NEG) Urine Cocaine Screen Neg (NEG) Urine Cannabinoids Screen Pos (NEG) Urine Ethyl Alcohol Neg (NEG) Impression . MILD ASTHMA EXAC ALVEOLITIS POSSIBLY RELATED TO INHALATION OF MARIJUANA Plan . FLOVENT ALBUTEROL PRN AVOID CAFFEINE AVOID MARIJUANA AND TOBACCO LUNGS CLEAR OK WITH DC HOME D/W FATHER FATHER TO FIND PCP OP PRAFUL WHEELER MD Mar 08, 2017 12:17
--- NOTE | 2017-03-08 14:14 | PDOC3 ---
Discharge Summary Visit Information Date of Admission: Mar 06, 2017 Date of Discharge: Mar 08, 2017 Admitting Diagnosis: asthma exac Final Diagnosis Asthma, acute exac hypokalemia Graves' disease, untreated known hyperthyroidism with noncompliance nausea vomiting and diarrhea and dehydration Problems Medical Problems: (1) Abdominal pain Status: Acute (2) Graves disease Status: Acute Brief Hospital Course Allergies Allergies Coded Allergies Type Severity Reaction Last Updated Verified morphine Allergy Severe "makes me go crazy" 03/06/17 Yes Vital Signs Vital Signs Date Time Temp Pulse Resp B/P (MAP) Pulse Ox O2 Delivery O2 Flow Rate FiO2 03/08/17 11:46 99 Room Air 03/08/17 10:48 98.1 85 18 127/92 (104) 98.1 Lab Results Laboratory Tests Test 03/06/17 15:01 03/06/17 16:00 03/07/17 03:00 03/07/17 03:30 Bedside Urine HCG, Qualitative Hcg negative (Negative) White Blood Count 4.1 x10^3/uL (4.0-11.0) 3.4 x10^3/uL (4.0-11.0) Red Blood Count 5.77 x10^6/uL (3.50-5.40) 4.53 x10^6/uL (3.50-5.40) Hemoglobin 14.3 g/dL (12.0-15.5) 11.2 g/dL (12.0-15.5) Hematocrit 44.0 % (36.0-47.0) 34.6 % (36.0-47.0) Mean Corpuscular Volume 76 fL (79-100) 76 fL (79-100) Mean Corpuscular Hemoglobin 25 pg (25-35) 25 pg (25-35) Mean Corpuscular Hemoglobin Concent 32 g/dL (31-37) 32 g/dL (31-37) Red Cell Distribution Width 13.7 % (11.5-14.5) 13.6 % (11.5-14.5) Platelet Count 209 x10^3/uL (140-400) 158 x10^3/uL (140-400) Neutrophils (%) (Auto) 57 % (31-73) 47 % (31-73) Lymphocytes (%) (Auto) 24 % (24-48) 36 % (24-48) Monocytes (%) (Auto) 19 % (0-9) 17 % (0-9) Eosinophils (%) (Auto) 0 % (0-3) 0 % (0-3) Basophils (%) (Auto) 0 % (0-3) 0 % (0-3) Neutrophils # (Auto) 2.3 x10^3uL (1.8-7.7) 1.6 x10^3uL (1.8-7.7) Lymphocytes # (Auto) 1.0 x10^3/uL (1.0-4.8) 1.2 x10^3/uL (1.0-4.8) Monocytes # (Auto) 0.8 x10^3/uL (0.0-1.1) 0.6 x10^3/uL (0.0-1.1) Eosinophils # (Auto) 0.0 x10^3/uL (0.0-0.7) 0.0 x10^3/uL (0.0-0.7) Basophils # (Auto) 0.0 x10^3/uL (0.0-0.2) 0.0 x10^3/uL (0.0-0.2) Segmented Neutrophils % 45 % (35-66) Band Neutrophils % 12 % (0-9) Lymphocytes % 24 % (24-48) Monocytes % 19 % (0-10) Platelet Estimate Adequate (ADEQUATE) Prothrombin Time 14.7 SEC (11.7-14.0) Prothromb Time International Ratio 1.2 (0.8-1.1) Urine Collection Type Unknown Urine Color Essence Urine Clarity Clear Urine pH 6.0 Urine Specific [place] >=1.030 Urine Protein 100 mg/dL (NEG-TRACE) Urine Glucose (UA) Negative mg/dL (NEG) Urine Ketones (Stick) Trace mg/dL (NEG) Urine Blood Trace (NEG) Urine Nitrite Negative (NEG) Urine Bilirubin Small (NEG) Urine Urobilinogen Dipstick 1.0 mg/dL (0.2 mg/dL) Urine Leukocyte Esterase Trace (NEG) Urine RBC 6-10 /HPF (0-2) Urine WBC 5-10 /HPF (0-4) Urine Squamous Epithelial Cells Mod /LPF Urine Bacteria 0 /HPF (0-FEW) Urine Mucus Marked /LPF Sodium Level 138 mmol/L (136-145) 139 mmol/L (136-145) Potassium Level 2.8 mmol/L (3.5-5.1) 3.0 mmol/L (3.5-5.1) Chloride Level 98 mmol/L (98-107) 104 mmol/L (98-107) Carbon Dioxide Level 27 mmol/L (21-32) 27 mmol/L (21-32) Anion Gap 13 (6-14) 8 (6-14) Blood Urea Nitrogen 10 mg/dL (7-20) 7 mg/dL (7-20) Creatinine 0.7 mg/dL (0.6-1.0) 0.6 mg/dL (0.6-1.0) Estimated GFR (Cockcroft-Gault) 129.1 154.2 Glucose Level 113 mg/dL (70-99) 108 mg/dL (70-99) Calcium Level 9.9 mg/dL (8.5-10.1) 8.3 mg/dL (8.5-10.1) Magnesium Level 2.0 mg/dL (1.8-2.4) Total Bilirubin 0.7 mg/dL (0.2-1.0) Direct Bilirubin 0.1 mg/dL (0.0-0.2) Aspartate Amino Transf (AST/SGOT) 25 U/L (15-37) Alanine Aminotransferase (ALT/SGPT) 22 U/L (14-59) Alkaline Phosphatase 90 U/L (46-116) Creatine Kinase 41 U/L (26-192) Creatine Kinase MB (Mass) < 0.5 ng/mL (0.0-3.6) Creatine Kinase MB Relative Index 1.2 % (0-4) Troponin I Quantitative < 0.017 ng/mL (0.000-0.055) ZX-Sff-T-Type Natriuretic Peptide 21 pg/mL (0-124) Total Protein 9.4 g/dL (6.4-8.2) Albumin 4.4 g/dL (3.4-5.0) Lipase 81 U/L (73-393) Thyroid Stimulating Hormone (TSH) < 0.007 uIU/mL (0.358-3.74) Free Thyroxine 1.88 ng/dL (0.76-1.46) Urine Opiates Screen Neg (NEG) Urine Methadone Screen Neg (NEG) Urine Barbiturates Neg (NEG) Urine Phencyclidine Screen Neg (NEG) Urine Amphetamine/Methamphetamine Neg (NEG) Urine Benzodiazepines Screen Neg (NEG) Urine Cocaine Screen Neg (NEG) Urine Cannabinoids Screen Pos (NEG) Urine Ethyl Alcohol Neg (NEG) Brief Hospital Course Ms. Ramos is a 21 old female, admit with cough, dyspnea, myalgia, her 2 yo child was also sick ID consult, rec cont Azithro for 5 more days. Pulm consult, Asthma management, resp exam much improved at OR Hyperthyroid, known Graves disease, she has not been compliant with treatment, restart Tapazole, NEEDS ENDO f/u, discussed at length Discharge Information Condition at Discharge: Improved Follow Up: Weeks Disposition/Orders: D/C to Home Patient Instructions Patient Instructions aryan garcia> 30 min TINA MAXWELL MD Mar 08, 2017 14:14
[2017-03-08] MEDS ORDERED: BUDESONIDE 0.5 MG/2 ML NEBU. NEB SCH (20:00)
== END 2017-03-08 15:10 | disposition home or self-care (01) ==
LOC: ER 15:33 → 5 NORTH 17:05
PROVIDERS: ADMIT Internal Medicine; ATTEND Internal Medicine
DX: J45.901 Unspecified asthma with (acute) exacerbation (principal); E05.00 Thyrotoxicosis with diffuse goiter without thyrotoxic crisis or storm; E87.6 Hypokalemia; E86.0 Dehydration; R11.0 Nausea; R11.10 Vomiting, unspecified; R19.7 Diarrhea, unspecified; J67.9 Hypersensitivity pneumonitis due to unspecified organic dust; M19.90 Unspecified osteoarthritis, unspecified site; F17.210 Nicotine dependence, cigarettes, uncomplicated; Z91.19 Patient's noncompliance with other medical treatment and regimen
CPT/HCPCS: 36415; 71275; 74177; 80048; 80076; 81001; 81025; 82553; 83690; 83735; 83880; 84439; 84443; 84484; 85007; 85027; 85610; 87040; 87086; 92610; 93005; 94250; 94640; 96361; 96365; 96366; 96367; 96375; 96376; 99285; G0378; G0481; J0696; J2405; J2550; J3010; J3480; J7030; J7512; Q0144; Q9966; Q9967; G0379; J7626